=== PATIENT | female | born 1970 | race Caucasian/White ===

== ENCOUNTER 2020-02-12 08:57 | Emergency (ER) | payer MEDICAID ==
[~2020-02-12] VITALS: Ht 162.6 cm; Wt 155.0 kg
[~2020-02-12 08:57] MED LIST: AMLO2.5T96 PO; GUAIF600 PO
[2020-02-12] MEDS ORDERED: CETI-450 PO (09:43)
[2020-02-12] MEDS ORDERED: FURO40 PO (09:43)
[2020-02-12 11:57] VITALS: BP 169/108
== END 2020-02-12 11:59 | disposition home or self-care (01) ==
LOC: EMS 08:59
DX: S93.401A Sprain of unspecified ligament of right ankle, initial encounter (principal); I11.0 Hypertensive heart disease with heart failure; I50.9 Heart failure, unspecified; Z90.89 Acquired absence of other organs; Z79.899 Other long term (current) drug therapy; X58.XXXA Exposure to other specified factors, initial encounter; Y93.01 Activity, walking, marching and hiking; Y92.89 Other specified places as the place of occurrence of the external cause; Y99.8 Other external cause status

== ENCOUNTER 2023-02-03 01:48 | Emergency (ER) | payer MEDICAID ==
[~2023-02-03] VITALS: Ht 157.5 cm; Wt 89.0 kg
[~2023-02-03 01:48] MED LIST changes: -AMLO2.5T96 PO; -GUAIF600 PO; +INSLAN SQ; +PANT-31 PO
[2023-02-03 07:33] VITALS: BP 101/60; PULSE 80; RESP 16; TEMP 98.1
== END 2023-02-03 08:39 | disposition home or self-care (01) ==
LOC: EMS 01:53
DX: J95.03 Malfunction of tracheostomy stoma (principal); I11.0 Hypertensive heart disease with heart failure; I50.9 Heart failure, unspecified; J40 Bronchitis, not specified as acute or chronic; Z79.899 Other long term (current) drug therapy; Z79.84 Long term (current) use of oral hypoglycemic drugs
CPT/HCPCS: 99283

== ENCOUNTER 2023-03-14 12:12 | Emergency (ER) | payer MEDICAID, OTHER ==
[~2023-03-14] VITALS: Ht 167.6 cm; Wt 120.0 kg
[2023-03-14 12:20] VITALS: TEMP 98.4
[2023-03-14] MEDS ORDERED: MethylPREDNISolone SOD SUCC 125 MG/2 ML VIAL IVP ONE (12:30)
[2023-03-14] MEDS ORDERED: FUROSEMIDE 40 MG/4 ML VIAL IVP ONE (12:45)
[2023-03-14 13:00] VITALS: PULSE 65; RESP 20; O2SAT 99
[2023-03-14 13:13] LABS: BASOPHILS % (AUTO) 0.5 % (0.0-2.0); EOSINOPHILS % (AUTO) 4.9 % (1.0-6.0); HEMATOCRIT 36.8 % (36-46); HEMOGLOBIN 11.7 g/dL (12.0-16.0); LYMPHOCYTES # (AUTO) 2.7 K/uL (1.0-4.8); LYMPHOCYTES % (AUTO) 29.1 % (22.0-44.0); MEAN CORPUSCULAR HEMOGLOBIN 30.3 pg (26.0-34.0); MEAN CORPUSCULAR HGB CONC 31.7 G/dL (31.0-37.0); MEAN CORPUSCULAR VOLUME 96 fL (80-100); MONOCYTES # (AUTO) 0.8 K/uL (0.1-1.0); MONOCYTES % (AUTO) 8.2 % (2.0-9.0); NEUTROPHILS # (AUTO) 5.3 K/uL (1.8-7.7); NEUTROPHILS % (AUTO) 57.3 % (40.0-70.0); PLATELET COUNT (AUTO) 350 K/uL (150-450); RED BLOOD CELL COUNT(AUTO) 3.85 MIL/uL (4.00-5.20); RED CELL DISTRIBUTION WIDTH 15.7 % (11.5-14.5); WHITE BLOOD COUNT (AUTO) 9.3 K/uL (4.5-11.0)
[2023-03-14 13:19] LABS: ANION GAP 7 mmol/L (8-16); CALCIUM, TOTAL 9.2 mg/dL (8.8-10.5); CARBON DIOXIDE 32 mmol/L (22-29); CHLORIDE 103 mmol/L (98-107); CREATININE 0.64 mg/dL (0.60-1.30); GLOMERULAR FILTR. RATE CALC > 60 mL/min (>60); GLUCOSE,RANDOM 126 mg/dL (70-110); SODIUM SERUM 142 mmol/L (136-145); UREA NITROGEN, BLOOD 15 mg/dL (7-18)
[2023-03-14 13:24] LABS: B-TYPE NATRIURETIC PEPTIDE 470 pg/mL (0-100)
[2023-03-14 13:26] LABS: TROPONIN I-HIGH SENSITIVITY 17 ng/L (<51)
[2023-03-14 13:44] LABS: ALANINE AMINOTRANSFERASE 22 U/L (12-78); ALBUMIN 3.6 g/dL (3.4-5.0); ALKALINE PHOSPHATASE 112 U/L (46-116); ASPARTATE AMINOTRANSFERASE 26 U/L (15-37); BILIRUBIN,TOTAL 0.9 mg/dL (0.1-1.0); CREATINE KINASE, TOTAL ONLY 106 U/L (26-192); TOTAL PROTEIN, SERUM 8.3 g/dL (6.4-8.2)
[2023-03-14 14:30] LABS: COVID AG,FIA SOURCE NASAL SWAB
[2023-03-14 14:48] LABS: APPEARANCE,URINE CLEAR (CLEAR); BILIRUBIN,URINE NEGATIVE (NEGATIVE); COLOR,URINE COLORLESS (YELLOW); GLUCOSE, URINE (UA) NEGATIVE (NEGATIVE); KETONES,URINE NEGATIVE (NEGATIVE); LEUKOCYTE ESTERASE ,URINE NEGATIVE (NEGATIVE); NITRATE,URINE NEGATIVE (NEGATIVE); OCCULT BLOOD,URINE NEGATIVE (NEGATIVE); PH,URINE 5.5 (5.0-8.0); PROTEIN,URINE NEGATIVE (NEGATIVE); SPECIFIC GRAVITIY, URINE 1.006 (1.003-1.030); UROBILINOGEN,URINE <=1.0 mg/dL (<=1.0)
[2023-03-14 14:48] LABS: SARS-COV2 (COVID) ANTIGEN,FIA Negative (Negative)
[2023-03-14] MEDS ORDERED: MORPHINE SULFATE 2 MG/ML SYRINGE IVP ONE (17:15)
[2023-03-14] MEDS ORDERED: SODIUM CHLORIDE 0.9% 100 ML ONE (18:44)
[2023-03-14] MEDS ORDERED: IOHEXOL 300 MG/ML 100 ML VIAL ONE (18:44)
[2023-03-14 20:37] VITALS: BP 143/63; PULSE 75; RESP 26
== END 2023-03-14 23:50 | disposition admitted as inpatient to this hospital (09) ==
LOC: EMS 12:13
DX: I11.0 Hypertensive heart disease with heart failure (principal); E11.9 Type 2 diabetes mellitus without complications; Z90.49 Acquired absence of other specified parts of digestive tract; Z98.890 Other specified postprocedural states; Z20.822 Contact with and (suspected) exposure to COVID-19
CPT/HCPCS: 99291; 96374; 70491; 71045; 96375; 87426; 80053; 81003; 82550; 83880; 84484; 85025; 85379; 87040; 36415; 94640; 93005; J1940; J2270; J2930; J7050; Q9967

== ENCOUNTER 2023-03-15 06:20 | Emergency (ER) | payer OTHER ==
[~2023-03-15] VITALS: Ht 154.9 cm; Wt 116.9 kg
[2023-03-15 06:30] VITALS: PULSE 89; RESP 20; O2SAT 99
[2023-03-15] MEDS ORDERED: IPRATROPIUM BROMIDE 0.5 MG/2.5 ML NEB SOLUTION NEB ONE (06:45)
[2023-03-15] MEDS ORDERED: ALBUTEROL SULFATE 2.5 MG/0.5 ML 5 ML NEB SOLUTION NEB ONE (06:45)
[2023-03-15 06:52] VITALS: TEMP 98
[2023-03-15 07:00] VITALS: PULSE 81; RESP 16; O2SAT 100
[2023-03-15 07:28] LABS: COVID AG,FIA SOURCE NASAL SWAB
[2023-03-15 07:53] LABS: SARS-COV2 (COVID) ANTIGEN,FIA Negative (Negative)
[2023-03-15 07:55] LABS: INFLUENZA TYPE A NEGATIVE FOR TYPE A (NEGATIVE); INFLUENZA TYPE B NEGATIVE FOR TYPE B (NEGATIVE)
[2023-03-15 08:01] LABS: BASOPHILS % (AUTO) 0.1 % (0.0-2.0); EOSINOPHILS % (AUTO) 0 % (1.0-6.0); HEMATOCRIT 36.5 % (36-46); HEMOGLOBIN 11.8 g/dL (12.0-16.0); LYMPHOCYTES % (AUTO) 11.1 % (22.0-44.0); MEAN CORPUSCULAR HEMOGLOBIN 30.5 pg (26.0-34.0); MEAN CORPUSCULAR HGB CONC 32.5 G/dL (31.0-37.0); MEAN CORPUSCULAR VOLUME 94 fL (80-100); MONOCYTES # (AUTO) 0.7 K/uL (0.1-1.0); MONOCYTES % (AUTO) 7.2 % (2.0-9.0); NEUTROPHILS # (AUTO) 7.4 K/uL (1.8-7.7); NEUTROPHILS % (AUTO) 81.6 % (40.0-70.0); PLATELET COUNT (AUTO) 323 K/uL (150-450); RED BLOOD CELL COUNT(AUTO) 3.88 MIL/uL (4.00-5.20); RED CELL DISTRIBUTION WIDTH 15.4 % (11.5-14.5); WHITE BLOOD COUNT (AUTO) 9.1 K/uL (4.5-11.0)
[2023-03-15 08:07] VITALS: PULSE 75; RESP 14; O2SAT 100
[2023-03-15 08:10] LABS: ANION GAP 6 mmol/L (8-16); CALCIUM, TOTAL 8.1 mg/dL (8.8-10.5); CARBON DIOXIDE 32 mmol/L (22-29); CHLORIDE 103 mmol/L (98-107); CREATININE 0.81 mg/dL (0.60-1.30); GLOMERULAR FILTR. RATE CALC > 60 mL/min (>60); GLUCOSE,RANDOM 145 mg/dL (70-110); POTASSIUM 3.9 mmol/L (3.5-5.1); SODIUM SERUM 141 mmol/L (136-145); UREA NITROGEN, BLOOD 22 mg/dL (7-18)
[2023-03-15 08:13] LABS: ALANINE AMINOTRANSFERASE 21 U/L (12-78); ALBUMIN 3.4 g/dL (3.4-5.0); ALKALINE PHOSPHATASE 94 U/L (46-116); ASPARTATE AMINOTRANSFERASE 23 U/L (15-37); BILIRUBIN,TOTAL 0.8 mg/dL (0.1-1.0); TOTAL PROTEIN, SERUM 7.9 g/dL (6.4-8.2)
[2023-03-15 08:15] LABS: TROPONIN I-HIGH SENSITIVITY 12 ng/L (<51)
[2023-03-15 08:21] LABS: B-TYPE NATRIURETIC PEPTIDE 307 pg/mL (0-100)
[2023-03-15 08:30] LABS: ABG BASE EXCESS 4.2 mmol/L (-2.0-3.0); ABG CARBOXYHEMOGLOBIN 0.9 % (0.0-1.5); ABG HCO3 27.8 mmol/L (22.0-26.0); ABG METHEMOGLOBIN 0.3 % (0.0-1.5); ABG OXYGEN CONTENT 16.5 mL/dL (15.0-23.0); ABG OXYGEN SATURATION 98.7 % (95.0-98.0); ABG OXYHEMOGLOBIN 97.5 % (94.0-100.0); ABG PCO2 43 mmHg (35-45); ABG PH 7.439 (7.35-7.450); ABG TOTAL HEMOGLOBIN 11.9 G/dL (12.0-18.0); SOURCE, BLOOD GAS ARTERIAL; TEMPERATURE, FAHRENHEIT, BG 97.6 FAHREN (96.0-98.6)
[2023-03-15 08:31] LABS: ALLEN TEST, BLOOD GAS POS; O2 DEVICE,BLOOD GAS TRACH MASK (ROOM AIR); SITE, BLOOD GAS RT BRACHIAL
[2023-03-15 08:33] LABS: RESPIRATORY SYNCYTIAL VIRS,FIA NEGATIVE (Negative)
[2023-03-15] MEDS ORDERED: AZITHROMYCIN 500 MG/NS 250 ML IV ONE (10:45)
[2023-03-15] MEDS ORDERED: CefTRIAXone 1 GM/DEXTROSE 50 ML IV ONE (10:45)
[2023-03-16 00:58] VITALS: BP 112/64; PULSE 73; RESP 17
== END 2023-03-16 01:19 | disposition left against medical advice (07) ==
LOC: EMS 06:21
DX: J96.00 Acute respiratory failure, unspecified whether with hypoxia or hypercapnia (principal); I11.0 Hypertensive heart disease with heart failure; I50.9 Heart failure, unspecified; Z87.09 Personal history of other diseases of the respiratory system; Z93.0 Tracheostomy status; Z90.49 Acquired absence of other specified parts of digestive tract; Z98.890 Other specified postprocedural states; Z20.822 Contact with and (suspected) exposure to COVID-19
CPT/HCPCS: 99291; 96365; 71045; 87426; 80053; 82550; 83880; 87420; 84484; 85025; 85379; 87040; 87205; 87804; 87077; 82805; 36600; 94644; 93005; 96368; 36415; J0456; J0696; Q9967

== ENCOUNTER 2023-05-26 10:46 | Emergency (ER) | payer OTHER ==
[~2023-05-26] VITALS: Ht 167.6 cm; Wt 107.0 kg
[2023-05-26 11:02] VITALS: TEMP 98.1
[2023-05-26] MEDS ORDERED: MethylPREDNISolone SOD SUCC 125 MG/2 ML VIAL IVP ONE (12:30)
[2023-05-26] MEDS ORDERED: IPRATROPIUM BROMIDE 0.5 MG/2.5 ML NEB SOLUTION NEB ONE (12:30)
[2023-05-26] MEDS ORDERED: ALBUTEROL SULFATE 2.5 MG/0.5 ML NEB SOLUTION NEB ONE (12:30)
[2023-05-26 13:09] VITALS: BP 111/64
[2023-05-26 13:09] LABS: BASOPHILS % (AUTO) 0.4 % (0.0-2.0); EOSINOPHILS % (AUTO) 1.1 % (1.0-6.0); HEMATOCRIT 45.8 % (36-46); LYMPHOCYTES # (AUTO) 0.8 K/uL (1.0-4.8); LYMPHOCYTES % (AUTO) 11.7 % (22.0-44.0); MEAN CORPUSCULAR HEMOGLOBIN 30.4 pg (26.0-34.0); MEAN CORPUSCULAR HGB CONC 32.8 G/dL (31.0-37.0); MEAN CORPUSCULAR VOLUME 93 fL (80-100); MONOCYTES # (AUTO) 0.4 K/uL (0.1-1.0); MONOCYTES % (AUTO) 5.8 % (2.0-9.0); NEUTROPHILS # (AUTO) 5.8 K/uL (1.8-7.7); PLATELET COUNT (AUTO) 170 K/uL (150-450); RED BLOOD CELL COUNT(AUTO) 4.94 MIL/uL (4.00-5.20); RED CELL DISTRIBUTION WIDTH 14.4 % (11.5-14.5); WHITE BLOOD COUNT (AUTO) 7.2 K/uL (4.5-11.0)
[2023-05-26 13:11] VITALS: PULSE 86; RESP 20; O2SAT 96
[2023-05-26 13:17] LABS: ANION GAP 8 mmol/L (8-16); CALCIUM, TOTAL 9.6 mg/dL (8.8-10.5); CARBON DIOXIDE 31 mmol/L (22-29); CHLORIDE 100 mmol/L (98-107); CREATININE 0.78 mg/dL (0.60-1.30); GLOMERULAR FILTR. RATE CALC > 60 mL/min (>60); GLUCOSE,RANDOM 122 mg/dL (70-110); POTASSIUM 4.3 mmol/L (3.5-5.1); SODIUM SERUM 139 mmol/L (136-145); UREA NITROGEN, BLOOD 16 mg/dL (7-18)
[2023-05-26 13:23] LABS: ALANINE AMINOTRANSFERASE 47 U/L (12-78); ALBUMIN 4.1 g/dL (3.4-5.0); ALKALINE PHOSPHATASE 98 U/L (46-116); ASPARTATE AMINOTRANSFERASE 42 U/L (15-37); BILIRUBIN,TOTAL 0.6 mg/dL (0.1-1.0); LIPASE 43 U/L (16-77); TOTAL PROTEIN, SERUM 8.2 g/dL (6.4-8.2)
[2023-05-26 13:25] VITALS: PULSE 85; RESP 20; O2SAT 99
[2023-05-26 13:25] LABS: LACTIC ACID 1.3 mmol/L (0.4-2.0); TROPONIN I-HIGH SENSITIVITY 28 ng/L (<51)
[2023-05-26 13:26] LABS: B-TYPE NATRIURETIC PEPTIDE 12 pg/mL (0-100)
== END 2023-05-26 16:51 | disposition home or self-care (01) ==
LOC: EMS 10:46
DX: R06.03 Acute respiratory distress (principal); J95.03 Malfunction of tracheostomy stoma; J45.909 Unspecified asthma, uncomplicated; E11.9 Type 2 diabetes mellitus without complications; I11.0 Hypertensive heart disease with heart failure; Z90.49 Acquired absence of other specified parts of digestive tract; Z98.890 Other specified postprocedural states; Z93.0 Tracheostomy status
CPT/HCPCS: 99291; 96374; 80053; 83605; 83690; 83880; 84484; 85025; 87040; 36415; 71045; 93005; J2930; J7613